=== PATIENT | female | born 1975 | race Hispanic/Latino ===

== ENCOUNTER 2018-10-10 12:13 | Emergency (ER) | payer SELFPAY ==
[~2018-10-10] VITALS: Ht 157.5 cm; Wt 54.4 kg
[2018-10-10 13:02] LABS: CLARITY,URINE SL CLOUDY (CLEAR); COLOR,URINE YELLOW (YELLOW); KETONES,URINE NEGATIVE (NEGATIVE); LEUKOCYTE ESTERASE ,URINE 1+ (NEGATIVE); NITRITE,URINE NEGATIVE (NEGATIVE); PROTEIN,URINE DIPSTICK TRACE (NEGATIVE)
[2018-10-10 13:03] LABS: BILIRUBIN,URINE NEGATIVE (NEGATIVE); URINE UROBILINOGEN 0.2 mg/dL (0.2 - 1)
[2018-10-10 13:10] LABS: BACTERIA,URINE MODERATE /HPF; EPITHELIAL CELLS,URINE FEW /LPF
[2018-10-10] MEDS ORDERED: KEFLEX500 MG PO (13:28)
[2018-10-10] MEDS ORDERED: PYRIDIUM100 MG PO (13:28)
[2018-10-10 13:38] VITALS: BP 5/2
== END 2018-10-10 13:44 | disposition home or self-care (01) ==
LOC: ER 12:13
DX: R30.0 Dysuria (principal); R31.9 Hematuria, unspecified; R21 Rash and other nonspecific skin eruption
CPT/HCPCS: 81001; 99282

== ENCOUNTER 2021-03-23 15:00 | Emergency (ER) | payer SELFPAY ==
[~2021-03-23] VITALS: Ht 157.5 cm; Wt 81.6 kg
[~2021-03-23 15:00] MED LIST: KEFLEX500 MG PO; PYRIDIUM100 MG PO
[2021-03-23] MEDS ORDERED: AUGMENTIN 500-1 EACH PO (16:07)
== END 2021-03-23 15:56 | disposition home or self-care (01) ==
LOC: ER 15:48
DX: H66.91 Otitis media, unspecified, right ear (principal); R50.9 Fever, unspecified
CPT/HCPCS: 99282